=== PATIENT | female | born 1955 | race American Indian/Alaskan Native ===

== ENCOUNTER 2018-01-13 06:39 | Inpatient (IN) | payer BC ==
[2015-01-27 08:01] VITALS: BMI 31.1
[2018-01-13] MEDS ORDERED: ceFAZolin IV 1 gm in Dextrose 2 GM/100 ML BAG IVPB ONE (07:21)
[2018-01-13] MEDS ORDERED: Propofol 10 mg/ml Inj (20 ML) ONE (07:30)
[2018-01-13] MEDS ORDERED: Midazolam 2 MG/2 ML VIAL ONE (07:30)
[2018-01-13] MEDS ORDERED: Morphine 4 MG/ML VIAL ONE (08:39)
[2018-01-13] MEDS: Bupivacaine-Epi 0.5%-1:200,000 PF Inj ONE ×2 (08:55→10:03)
[2018-01-13] MEDS ORDERED: Neostigmine Methylsulfate 3mg/3ml Syringe IV ONE (10:18)
[2018-01-13] MEDS ORDERED: HYDROmorphone 0.5 mg/0.5 ml ISec IVP PRN (11:52)
[2018-01-13] MEDS ORDERED: Lactated Ringer's 1,000 ML IV SCH (13:15)
[2018-01-13] MEDS: Oxycodone/Acetaminophen 5/325 mg Tab PO PRN (20:04)
[2018-01-14] MEDS ORDERED: Magnesium Hydroxide Susp 30 ml UD PO ONE (08:05)
[2018-01-14 08:50] LABS: BASO % 0.4 % (0.0-2.0); EOS % 0.2 % (0.0-4.0); HEMOGLOBIN 10.5 g/dL (11.0-16.0); LYMPH # 1.5 K/uL (1.0-4.3); LYMPH % 21.1 % (20.0-40.0); MEAN CELL VOLUME 86.2 fL (81.0-99.0); MEAN CORPUSCULAR HEMOGLOBIN 29.2 pg (27.0-31.0); MEAN CORPUSCULAR HGB CONC 33.9 g/dL (33.0-37.0); MEAN PLATELET VOLUME 8.8 fL (7.2-11.7); MONO # 0.4 K/uL (0.0-0.8); MONO % 6.2 % (0.0-10.0); NEUT # 5.1 K/uL (1.8-7.0); NEUT % 72.1 % (50.0-75.0); RBC 3.61 Mil/uL (3.80-5.20); RED CELL DISTRIBUTION WIDTH 14.4 % (11.5-14.5); WHITE BLOOD COUNT 7.1 K/uL (4.8-10.8)
[2018-01-14 08:59] LABS: BLOOD UREA NITROGEN 15 mg/dL (7-17); GFR NON-AFRICAN AMERICAN > 60
[2018-01-14] MEDS: Simethicone 80 mg Chewtab PO SCH ×2 (09:05→17:09)
[2018-01-14] MEDS: Oxycodone/Acetaminophen 5/325 mg Tab PO PRN ×2 (17:49→17:53)
[2018-01-15] MEDS: Oxycodone/Acetaminophen 5/325 mg Tab PO PRN ×2 (00:23→10:00)
[2018-01-15] MEDS: Simethicone 80 mg Chewtab PO SCH ×2 (03:14→09:23)
--- NOTE | 2018-01-15 03:47 | CON ---
DATE: 01/14/2018 The patient was seen and examined at bedside on 01/14/2018. CHIEF COMPLAINT: Abdominal pain. HISTORY OF PRESENT ILLNESS: Ms. Belen Cheung is a 62-year-old, my private patient, with history of lupus, rheumatoid arthritis, degenerative joint disease, sickle-cell trait, hypertension, hypercholesterolemia, got surgery from Dr. Cornelia Winchester. Looking comfortable. Daughter was sitting on the bedside also. No fever. No chills. Complaining about just abdominal pain. No hematuria or hematochezia. No bowel movements. PAST MEDICAL HISTORY: As above, history of lupus, rheumatoid arthritis, hypertension, hypercholesterolemia, sickle-cell trait, degenerative joint disease. PHYSICAL EXAMINATION: VITAL SIGNS: Temperature 99, pulse 72, blood pressure 109/72, respiratory rate 18. HEENT: Head: Normocephalic, atraumatic. Eyes: PERRLA. Extraocular movements intact. Conjunctivae clear. Nose patent. Mucous membranes moist. NECK: Supple. No carotid bruits. No JVD or thyromegaly. CHEST: Bilaterally symmetrical. HEART: S1 and S2 positive. LUNGS: Clear to auscultation. ABDOMEN: Soft. Tender at surgical site. EXTREMITIES: No edema, no cyanosis. NEUROLOGIC: The patient is awake and alert, moving all 4 extremities. No focal deficits. MEDICATIONS: Lactate, Mylicon chew, Percocet, Zofran. LABORATORY DATA: Sodium 137, potassium 4.1, BUN 15, calcium 0.8. White blood cells 7.1, hemoglobin 10.5, hematocrit 31.1, platelets 259. ASSESSMENT AND PLAN: Ms. Belen Cheung, my private patient, is a 62-year-old lady with anemia, history of lupus, rheumatoid arthritis, sickle-cell trait, history of hypercholesterolemia, degenerative joint disease, has history of fibroids, pelvic pain, got robotic surgery, total hysterectomy from Dr. Cornelia Winchester; looking good. As per patient, still no passage of gas, time to move to go to the bathroom. Getting Ringer's lactate. We will repeat labs. Thank you very much for participating in my patient's treatment. Gastrointestinal/deep venous thrombosis prophylaxis. Repeat labs. We will follow. Jennifer Mercer MD [facility] # [id number] VINAYAK
[2018-01-15 08:04] VITALS: BP 113/63; PULSE 70; RESP 18; O2SAT 97
[2018-01-15 08:28] LABS: IRON 39 ug/dL (37-170)
[2018-01-15 08:41] VITALS: TEMP 97
[2018-01-15 08:41] LABS: % IRON SATURATION 13 (20-55); TOTAL IRON BINDING CAPACITY 294 ug/dL (250-450)
[2018-01-15 09:33] LABS: FOLATE 15.7 ng/mL
--- NOTE | 2018-01-16 03:39 | PN ---
DATE: 01/15/2018 SUBJECTIVE: The patient was seen and examined at bedside on 01/15/2018, this progress note is for 01/15/2018. Looking comfortable. She is walking around in her room. Pain is getting better, but still there. She do not have bowel movements, but she has flatus. No nausea or vomiting. No fever. No chills. No back pain. No neck pain. Tolerated food very well. PHYSICAL EXAMINATION: VITAL SIGNS: Temperature 97, pulse 70, respiratory rate 18, blood pressure 117/63. HEENT: Head is normocephalic and atraumatic. Eyes PERRLA. Extraocular muscles are intact. Conjunctivae clear. Nose patent. Mucous membranes are moist. NECK: Supple. No carotid bruits. No JVD or thyromegaly. CHEST: Bilaterally symmetrical. HEART: S1 and S2 positive. LUNGS: Clear to auscultation. ABDOMEN: Soft. Bowel sounds present. No organomegaly. EXTREMITIES: No edema. No cyanosis. NEUROLOGIC: The patient is awake and alert. Moving all 4 extremities. No focal deficits. MEDICATIONS: Ringer's lactate, Percocet, Zofran. LABORATORY DATA: White blood cells 7.1, hemoglobin 10.5, hematocrit 31.1, platelets 259. Sodium 137, potassium 4.1, BUN 50, creatinine 0.8, glucose 102. Iron saturation 13. ASSESSMENT AND PLAN: Mrs. Belen Cheung is a 62 years old lady with anemia, sickle-cell trait, iron deficiency, dyslipidemia, history of lupus, degenerative joint disease, status post joint surgery and was admitted in the [facility] ([facility]3] for robotic hysterectomy was done by Dr. Cornelia Winchester. The patient has hypercholesterolemia, degenerative joint disease, fibroid uterus, pelvic pain. Doing well, tolerated the procedure very well and tolerating food very well, passing gas and the patient will be discharged by Dr. Cornelia Winchester. Follow up as outpatient. We will follow up. Jennifer Mercer MD [facility]
--- NOTE | 2018-01-19 18:19 | PCM.OP ---
Operative Report - Operative Report Date of Surgery/Procedure: 01/13/18 Time of Surgery/Procedure: 08:00 Surgeon: Joss montes de oca MD [employer] Supervisor: Cornelia Dunham MD Anesthesia/Sedation: GEt Pre-Operative Diagnosis: Pelvic fibrosis , adhesions, pelvic pain , ovaran mass, hydrosalpinx Post-Operative Diagnosis: as above Indication for Surgery: called in to assist Dr Dunham for a difficult dissection in a patient with extensive adhesions and ovarian mass Operative Findings: pelvic adhesiosn pelvic sidewall fibrosis Procedure/Operation Description: Procedure : robotic bilateral ureterolysis. I was called in to assist Dr. Dunham in a difficult hysterectomy with bilateral ovarian masses. the patient was already ansthesized and Maximo Kumar had performed a cystoscopy and bilateral ureteral catheterization and injection of ICgreen dye. I took over the console and proceded with the dissection. At this point, we proceeded with the left ureterolysis. The ureter appeared to dilated and it was clearly identified utilizing fluorescent technology. An incision was made on the peritoneum at the top of the pelvic brim, and incision was then carried down all the way opening the peritoneum and all the way down from the pelvic brim all the way down to the ovarian fossa extending the incision below the ov mere. It was a progressive dissection where the ureter was progressively lateralized and the peritoneum medialized, thus freeing the ureter all the way down to the crossing of the uterine vessels. After this was done and the ureter was freed and lateralized At this point, after ureter had been identified, we were able to elevate the ovary and dissect it from the pelvic side wall in the ovarian fossa. At this point, we proceeded with the left ovariolysis. The ovary was gently dissected and elevated off the ovarian fossa and area of fibrosis and what appeared like old endometriosis were exposed. At this point, we proceeded with the right ureterolysis. The ureter was identified and again utilizing florescent technology, the retroperitoneal space was entered and a full dissection was performed entering the retroperitoneal space and dissecting the ureter, removing the ureter laterally and the peritoneum medially. A full dissection was performed all the way down to the ovarian fossa, on the crossing of the uterine arteries. At this point, we proceeded with a right ovariolysis. The ovary was progressively elevated, areas of deep endometriosis and superficial endometriosis were dissected out and the ovary was finally elevated. The robotic console was handed back to dr dunham Estimated Blood Loss: minimal Blood Replaced: none Complications: none Discharge & Condition: pt to recovery in excellent condition
--- NOTE | 2018-01-20 10:50 | CP.PCM.DIS ---
Provider - Provider Date of Admission: 01/13/18 13:04 Attending physician: Cornelia Winchester MD Time Spent in preparation of Discharge (in minutes): 30 Hospital Course - Lab Results Lab Results: Most Recent Lab Values WBC 7.1 K/uL (4.8-10.8) 01/14/18 08:33 RBC 3.61 Mil/uL (3.80-5.20) L 01/14/18 08:33 Hgb 10.5 g/dL (11.0-16.0) L 01/14/18 08:33 Hct 31.1 % (34.0-47.0) L 01/14/18 08:33 MCV 86.2 fL (81.0-99.0) 01/14/18 08:33 MCH 29.2 pg (27.0-31.0) 01/14/18 08:33 MCHC 33.9 g/dL (33.0-37.0) 01/14/18 08:33 RDW 14.4 % (11.5-14.5) 01/14/18 08:33 Plt Count 259 K/uL (130-400) 01/14/18 08:33 MPV 8.8 fL (7.2-11.7) 01/14/18 08:33 Neut % (Auto) 72.1 % (50.0-75.0) 01/14/18 08:33 Lymph % (Auto) 21.1 % (20.0-40.0) 01/14/18 08:33 [place] % (Auto) 6.2 % (0.0-10.0) 01/14/18 08:33 Eos % (Auto) 0.2 % (0.0-4.0) 01/14/18 08:33 Baso % (Auto) 0.4 % (0.0-2.0) 01/14/18 08:33 Neut # (Auto) 5.1 K/uL (1.8-7.0) 01/14/18 08:33 Lymph # (Auto) 1.5 K/uL (1.0-4.3) 01/14/18 08:33 [place] # (Auto) 0.4 K/uL (0.0-0.8) 01/14/18 08:33 Eos # (Auto) 0.0 K/uL (0.0-0.7) 01/14/18 08:33 Baso # (Auto) 0.0 K/uL (0.0-0.2) 01/14/18 08:33 Sodium 137 mmol/L (132-148) 01/14/18 08:33 Potassium 4.1 mmol/L (3.6-5.2) 01/14/18 08:33 Chloride 101 mmol/L (98-107) 01/14/18 08:33 Carbon Dioxide 29 mmol/L (22-30) 01/14/18 08:33 Anion Gap 12 (10-20) 01/14/18 08:33 BUN 15 mg/dL (7-17) 01/14/18 08:33 Creatinine 0.8 mg/dL (0.7-1.2) 01/14/18 08:33 Est GFR ( Amer) > 60 01/14/18 08:33 Est GFR (Non-Af Amer) > 60 01/14/18 08:33 Random Glucose 102 mg/dL (65-105) 01/14/18 08:33 Hemoglobin A1c 5.4 % (4.2-6.5) 01/15/18 08:03 Calcium 9.0 mg/dl (8.6-10.4) 01/14/18 08:33 Iron 39 ug/dL (37-170) 01/15/18 08:03 TIBC 294 ug/dL (250-450) 01/15/18 08:03 % Saturation 13 (20-55) L 01/15/18 08:03 Triglycerides 73 mg/dL (0-149) 01/15/18 08:03 Cholesterol 167 mg/dL (0-199) 01/15/18 08:03 LDL Cholesterol Direct 58 mg/dL (0-129) 01/15/18 08:03 HDL Cholesterol 73 mg/dL (30-70) H 01/15/18 08:03 Vitamin B12 743 pg/mL (239-931) 01/15/18 08:03 Folate 15.7 ng/mL 01/15/18 08:03 Blood Type A POSITIVE 01/13/18 07:42 Antibody Screen Negative 01/13/18 07:42 Discharge Exam - Head Exam Head Exam: ATRAUMATIC - Eye Exam Eye Exam: EOMI Pupil Exam: PERRL - ENT Exam ENT Exam: Mucous Membranes Dry, Mucous Membranes Moist - Respiratory Exam Respiratory Exam: Clear to PA & Lateral, NORMAL BREATHING PATTERN, UNREMARKABLE - Cardiovascular Exam Cardiovascular Exam: REGULAR RHYTHM, +S1, +S2 - GI/Abdominal Exam GI & Abdominal Exam: Normal Bowel Sounds, Soft, Unremarkable - Rectal Exam Rectal Exam: NORMAL INSPECTION - Exam Exam: NORMAL INSPECTION Discharge Plan - Follow Up Plan Condition: GOOD Disposition: HOME/ ROUTINE Instructions: Robot-Assisted Surgery, How to Prevent Surgical Site Infections, Hysterectomy (DC)
--- NOTE | 2018-01-23 07:03 | OP ---
PROCEDURE DATE: 01/13/2018 SURGEON: Cornelia Winchester MD ASSISTANTS: GEORGIANA Medley and Joss Philip MD PREOPERATIVE DIAGNOSES: Pelvic fibrosis, adhesions, pelvic pain, ovarian mass, hydrosalpinx, bladder pain, rule out interstitial bursitis. POSTOPERATIVE DIAGNOSES: Pelvic fibrosis, adhesions, pelvic pain, ovarian mass, hydrosalpinx, bladder pain, rule out interstitial bursitis. ANESTHESIA: General endotracheal with ET tube. OPERATIVE FINDINGS: Bulky enlarged fibroid greater than 250 g, extensive adhesions noted of right tube and ovary to uterine wall, pelvic side wall and also left pelvic side wall as well, enlarged left ovarian mass with tubes. Cystoscopy, bilateral ureteral jets. PROCEDURES PERFORMED: Total robotic hysterectomy, bilateral salpingo-oophorectomy, pelvic washing, cystoscopy with bilateral ureteral catheterization and injection of IC-Green. Please refer to separate operative note from Dr. Joss Philip for bilateral ureterolysis. ESTIMATED BLOOD LOSS: 50 mL. INTAKE AND OUTPUT: Adequate. SPECIMEN: Uterus, right and left fallopian tube, pelvic washing. Frozen sample had been sent with a prelim of benign. INDICATION FOR THE PROCEDURE AND CONSENT: The patient is a 62-year-old with long lasting history of pelvic pain, abdominal pain, bladder pain, diffuse genitalia pain of long duration, that had a full workup including an ultrasound that revealed a large uterus and has hydrosalpinx on the left fallopian tube with an ovarian mass and enlarged right adnexal mass as well. The right ovary was clearly seen to be adherent to the right pelvic side wall and the left tube appeared to be dilated with a left enlarged ovarian mass that was removed and sent for frozen. Prior to the surgery, the patient also had pelvic pressure. All risks, benefits, alternatives, and indications of the procedure were discussed. Consent was obtained. The patient had failed multiple medical therapies. She understood that because of difficulty, she would necessitate a cystoscopy with placement of ureteral stents with injection device seeking for the purpose of identifying the uterus throughout the difficult procedure and she agreed to that and she signed the consent and was taken to the operating room. FINDINGS OF SURGERY: Exam under anesthesia revealed a large uterus about 10 to 12 weeks size and cystoscopy revealed a normal size bladder with no evidence of trigonitis, tumors, or any other lesions or endometriosis inside the bladder. The upper abdomen appeared to be normal with a normal liver, normal ascending and descending colon. The pelvis revealed significant adhesions with the uterus with a large left adnexal mass of the tube and ovary and a right enlarged tube and ovary as well adherent to the pelvic side wall, the ureter was adherent. DESCRIPTION OF PROCEDURE: At this point, the patient was taken to the operating room and placed in dorsal lithotomy position. She was prepped and draped in the usual sterile fashion. Extreme attention was made in the padding in the area in the prone position. Also extreme attention was placed to not to over-extend or over-flex the hips of the patient. A time-out was taken per the hospital policy before the procedure was started. The first part of the procedure involved cystoscopy. The cystoscope was inserted in the bladder and 200 mL of fluid was run through this. The bladder appeared to be free of lesions and tumors. Both ureter and ostia were within the anatomical position. The left ureter was then cannulated with a 5-[place] open-ended catheter all the way to the distal ureter and 5 mL of IC green were injected. Similarly, the contralateral ureter were also cannulated all the way to the distal ureter and 5 mL of IC green were injected. At this point, the cystoscope was removed and a 16-[place] Salas was inserted in the bladder. At this point, a speculum was placed in the vagina. Anterior lip of the cervix was grasped and the uterine manipulator was inserted into the uterus with a large size VCare without any problems. After re-gowning and re-gloving, attention was on the abdomen where the docking of the robot happened and open laparoscopy was performed. Incision was made in the umbilicus with the open laparoscopy technique incising the fascia and the fascia entered into the peritoneum in a blunt fashion. The trocar was simply inserted under direct visualization. The abdomen was insufflated under direct visualization and the shorter portals were inserted in the left upper quadrant, right upper quadrant and left lower quadrant. The left lower quadrant one was 12 mm size. The findings were described at this point. At this point, the da Krishan Xi robot was docked. Next, we proceeded with lysis of adhesions after elevating the uterus, there was evidence of left and right fallopian tubes and ovaries were severely adherent to the posterior side wall and to the uterus. The uterus was then elevated with a progressive dissection. As it was performed, the uterus was identified using fluorescent technology. Dr. Philip was called in and assisted and performed the ureterolysis, which he will dictate separately. Once the uterus were free of adhesions, the left ovary was elevated and free of adhesions, we continued with our dissection of the left tube and ovary in which the IP ligament was clamped with a bipolar device and cauterized. The specimen was removed from the cornual region and placed in a EndoCatch bag and sent to Pathology for frozen section after the initial collections of pelvic washing. The initial frozen was noted to be benign. Attention was then in a similar fashion to the right tube and ovary with adhesions were carefully dissected. The IP ligament was cauterized and cut using the bipolar device and also the specimen was removed through an EndoCatch bag and sent to the frozen section. The hysterectomy was then proceeded. The round ligament was first coagulated and ligated on the left side, and progressively an anterior flap was developed and making the incision progressively dissecting the bladder to anterior part of the cervix. Dissection was continued on the left hand side where down to the utero-ovarian ligament was cut and progressively dissected all the way down to the uterine vessels all the way down to the left hand side. At this point, the adhesions were then removed keeping an eye on the ureter utilizing fluorescent technology IP ligament all the way down to the broad ligament. Once this was incised, the broad ligament was also incised and the bladder flap was developed anterior. At this point, once the bladder flap was created, the uterine vessels were ligated right on the side with extreme caution to visualize the right ureter under direct visualization using fluorescent and they were cut creating a pedicle, similarly on the left hand side they were also coagulated first and then cut, therefore freeing the uterus and freeing it from its vascular components. Throughout this time, the ureter was always kept visualized using fluorescent technology. At this point, because of the large size of the uterus . Following this, a at this point was performed using the VCare as a guide. Using the bipolar and monopolar device, a colpotomy was then performed and incised 360 degrees. The uterus and vagina was then removed through the cervix and the vaginal cuff was then closed after good hemostasis. Vaginal cuff was closed with a running suture of 2-0 PDS in two separate layers. The patient appeared to have hemostasis in excellent condition. The cuff appeared to be hemostatic. Both pedicles were inspected. Attention was then turned. Following this, the abdomen was then irrigated with good hemostasis noted. The da Krishan robot was then undocked. All instruments were removed. There was good hemostasis noted at the removal of all port sites. The 12 mm site was then closed with the fascia using an 0 Vicryl using two S-retractors elevating the fascia to the incision and closing. Following this, the abdomen was then carefully desufflated. All instruments were removed. The skin was reapproximated and closed with 4-0 Monocryl. Abdomen was then cleaned. Steri-Strips and bandage dressing were applied. The patient was transferred to the recovery room in excellent condition. Cornelia Winchester MD
== END 2018-01-15 12:08 | disposition home or self-care (01) | DRG 743 ==
LOC: C.SDS 06:39 → C.4M 13:04
PROVIDERS: ADMIT Obstetrics & Gynecology; ATTEND Obstetrics & Gynecology
PROC: 0UT7FZZ Resection of Bilateral Fallopian Tubes, Via Natural or Artificial Opening With Percutaneous Endoscopic Assistance (ICD-10-PCS; 2018-01-13)
PROC: 0UN04ZZ Release Right Ovary, Percutaneous Endoscopic Approach (ICD-10-PCS; 2018-01-13)
PROC: 8E0W4CZ Robotic Assisted Procedure of Trunk Region, Percutaneous Endoscopic Approach (ICD-10-PCS; 2018-01-13)
PROC: 0DNW4ZZ Release Peritoneum, Percutaneous Endoscopic Approach (ICD-10-PCS; 2018-01-13)
PROC: 0TN78ZZ Release Left Ureter, Via Natural or Artificial Opening Endoscopic (ICD-10-PCS; 2018-01-13)
PROC: 0TN68ZZ Release Right Ureter, Via Natural or Artificial Opening Endoscopic (ICD-10-PCS; 2018-01-13)
PROC: 0T788DZ Dilation of Bilateral Ureters with Intraluminal Device, Via Natural or Artificial Opening Endoscopic (ICD-10-PCS; 2018-01-13)
PROC: 0UT98ZZ Resection of Uterus, Via Natural or Artificial Opening Endoscopic (ICD-10-PCS; principal; 2018-01-13 07:45)
PROC: 0UT2FZZ Resection of Bilateral Ovaries, Via Natural or Artificial Opening With Percutaneous Endoscopic Assistance (ICD-10-PCS; 2018-01-13 07:45)
DX: D25.9 Leiomyoma of uterus, unspecified (principal); D27.1 Benign neoplasm of left ovary; N80.1 Endometriosis of ovary; N70.11 Chronic salpingitis; N73.6 Female pelvic peritoneal adhesions (postinfective); N83.9 Noninflammatory disorder of ovary, fallopian tube and broad ligament, unspecified; R10.2 Pelvic and perineal pain; R39.82 Chronic bladder pain; D50.9 Iron deficiency anemia, unspecified; D57.3 Sickle-cell trait; I10 Essential (primary) hypertension; M06.9 Rheumatoid arthritis, unspecified; E78.5 Hyperlipidemia, unspecified; E78.00 Pure hypercholesterolemia, unspecified; M19.90 Unspecified osteoarthritis, unspecified site